=== PATIENT | female | born 1940 | race Caucasian/White ===

== ENCOUNTER 2018-08-28 17:27 | Emergency (ER) | payer MEDICARE, OTHER ==
--- NOTE | 2018-08-28 18:07 | EDM.PDOC ---
ED HPI GENERAL MEDICAL PROBLEM - General Chief Complaint: Neurological Problem Stated Complaint: LOSS OF MEMORY DISORIENTATION Time Seen by Provider: 08/28/18 17:37 Source of Information: Reports: Patient, Family, RN, RN Notes Reviewed History Limitations: Reports: No Limitations - History of Present Illness INITIAL COMMENTS - FREE TEXT/NARRATIVE: Patient is brought to the emergency room at [facility] for the evaluation of acute onset of altered mental status and confusion. The patient's son states that his mother called him around 5 PM this evening and seemed very confused on the phone, therefore she was brought to the emergency room. The patient and son state that the patient seemed to have some memory deficit starting about one month ago after she returned from a trip to [place]. The symptoms have not really been all that pronounced until this past weekend and today. The patient cannot remember the events from earlier today or this weekend. The patient is aware of her surroundings and is able to know the date and year. She is able to recognize objects. The patient is able to remember her address. The patient is aware, however that her memory is not what it should be. The patient denies any strokelike symptoms. The patient does not have any visual field disturbances. The patient has no history of any neurological problems or deficits in the past. The patient has not had any changes in medications. Her last travel was to [place] last month. The patient denies any possible vector bites. The patient states that she feels frustrated because she is aware of her memory deficits. Onset: Gradual - Related Data Allergies Allergy/AdvReac Type Severity Reaction Status Date / Time sertraline HCl [From Zoloft] Allergy Nausea Verified 12/25/15 06:20 Home Meds: Home Meds Aspirin [Halfprin] 1 tab PO DAILY 12/25/15 [History] Escitalopram [Lexapro] 1 tab PO DAILY 12/25/15 [History] Esomeprazole Magnesium [Nexium] 1 cap PO DAILY 12/25/15 [History] Ferrous Sulfate 1 tab PO TID 12/25/15 [History] Levothyroxine Sodium [Synthroid] 1 tab PO DAILY 12/25/15 [History] Past Medical History Cardiovascular History: Reports: None Respiratory History: Reports: None Gastrointestinal History: Reports: GERD Genitourinary History: Reports: None Musculoskeletal History: Reports: Osteoarthritis, Other (See Below) Other Musculoskeletal History: bunion Neurological History: Reports: None Psychiatric History: Reports: Anxiety, Depression Endocrine/Metabolic History: Reports: Hypothyroidism Oncologic (Cancer) History: Reports: None Dermatologic History: Reports: Other (See Below) Other Dermatologic History: seborrheic keratosis - Past Surgical History Cardiovascular Surgical History: Reports: None ED ROS GENERAL - Review of Systems Review Of Systems: See Below Constitutional: Denies: Fever, Chills Respiratory: Denies: Shortness of Breath, Cough Cardiovascular: Denies: Chest Pain, Palpitations GI/Abdominal: Denies: Abdominal Pain, Nausea, Vomiting Skin: Reports: No Symptoms Neurological: Reports: Confusion. Denies: Headache, Pre-Existing Deficit, Syncope, Trouble Speaking, Change in Speech ED EXAM, NEURO - Physical Exam Exam: See Below Exam Limited By: No Limitations General Appearance: Alert, No Apparent Distress Eye Exam: Bilateral Eye: EOMI, Normal Inspection, PERRL Ears: Normal External Exam, Normal Canal, Normal TMs Nose: Normal Inspection Head Exam: Atraumatic, Normocephalic Neck: Normal Inspection, Supple, Non-Tender Respiratory/Chest: No Respiratory Distress, Lungs Clear, Normal Breath Sounds Cardiovascular: Normal Peripheral Pulses, Regular Rate, Rhythm GI/Abdominal: Normal Bowel Sounds, Soft, Non-Tender Neurological: Alert, Other (oriented to place and person, disoriented to time; unable to recall past weekend or todays events) Skin Exam: Warm, Dry, Intact, Normal Color Course - Orders/Labs/Meds Orders: Active Orders 24 hr Category Date Time Status EKG 12 Lead [EKG Documentation Completion] [RC] STAT Care 08/28/18 17:59 Active CULTURE URINE [RM] Stat Lab 08/28/18 18:00 Received Labs: Laboratory Tests 08/28/18 08/28/18 08/28/18 Range/Units 18:00 18:06 18:06 WBC 6.3 (4.0-10.0) x10^3/uL RBC 3.88 L (4.00-5.50) x10^6/uL Hgb 11.3 L (12.0-16.0) g/dL Hct 35.2 (33.0-47.0) % MCV 90.7 (78.0-93.0) fL MCH 29.1 (26.0-32.0) pg MCHC 32.1 (32.0-36.0) g/dL RDW Coeff of Mildred 13.0 (10.0-15.0) % Plt Count 259 (130-400) x10^3/uL Neut % (Auto) 49.9 L (50.0-80.0) % Lymph % (Auto) 37.9 (25.0-50.0) % [place] % (Auto) 7.7 (2.0-11.0) % Eos % (Auto) 3.9 (0.0-4.0) % Baso % (Auto) 0.6 (0.2-1.2) % Sodium 142 (136-145) mmol/L Potassium 3.6 (3.5-5.1) mmol/L Chloride 105 (98-107) mmol/L Carbon Dioxide 27 (21-32) mmol/L Anion Gap 13.6 (10-20) mmol/L BUN 17 (7-18) mg/dL Creatinine 1.0 (0.55-1.02) mg/dL Est Cr Clr Drug Dosing TNP Estimated GFR (MDRD) 53 Glucose 111 H (74-106) mg/dL Calcium 8.8 (8.5-10.1) mg/dL Corrected Calcium 9.36 (8.5-10.1) mg/dL Magnesium 1.9 (1.8-2.4) mg/dL Total Bilirubin 0.4 (0.2-1.0) mg/dL AST 14 L (15-37) U/L ALT 13 L (14-59) U/L Alkaline Phosphatase 93 (46-116) U/L Creatine Kinase 82 (26-192) U/L Troponin I < 0.017 (<=0.056) ng/mL Total Protein 6.7 (6.4-8.2) g/dL Albumin 3.3 L (3.4-5.0) g/dL Globulin 3.4 Albumin/Globulin Ratio 0.97 Urine Color Yellow (YELLOW) Urine Appearance Clear (CLEAR) Urine pH 5.5 (5.0-8.0) Ur Specific [place] 1.010 Urine Protein Negative (NEGATIVE) mg/dL Urine Glucose (UA) Negative (NEGATIVE) mg/dL Urine Ketones Negative (NEGATIVE) mg/dL Urine Occult Blood Trace-lysed H (NEGATIVE) Urine Nitrite Negative (NEGATIVE) Urine Bilirubin Negative (NEGATIVE) Urine Urobilinogen 0.2 (0.2) EU/dL Ur Leukocyte Esterase Small H (NEGATIVE) Urine RBC 0-5 (NOT SEEN) /HPF Urine WBC 0-5 (NOT SEEN) /HPF Ur Squamous Epith Cells Few H (NEGATIVE) /HPF Urine Bacteria Rare (NEGATIVE) /HPF Urine Mucus Few H (NEGATIVE) /LPF Urine Yeast (Budding) Not seen - Radiology Interpretation Free Text/Narrative:: CT Head: No acute findings seen on CT scan of the brain. CT scan report in EMR for details. CT Results Date: 08/28/18 CT Results Time: 18:43 Departure - Departure Time of Disposition: 19:09 Disposition: Home, Self-Care 01 Condition: Good Clinical Impression: Acute confusion - Discharge Information *PRESCRIPTION DRUG MONITORING PROGRAM REVIEWED*: Not Applicable *COPY OF PRESCRIPTION DRUG MONITORING REPORT IN PATIENT RICKY: Not Applicable Instructions: Confusion Referrals: Terra Mac DO [Primary Care Provider] - Forms: ED Department Discharge Additional Instructions: Stay well-hydrated and rest. No changes with any home medications. All lab work and CAT scan were normal. Recommend follow-up with PCP later this week for any additional testing. - Problem List Review Problem List Initiated/Reviewed/Updated: Yes - My Orders Last 24 Hours: My Active Orders 08/28/18 17:59 EKG 12 Lead [EKG Documentation Completion] [RC] STAT 08/28/18 18:00 CULTURE URINE [RM] Stat - Assessment/Plan Last 24 Hours: My Active Orders 08/28/18 17:59 EKG 12 Lead [EKG Documentation Completion] [RC] STAT 08/28/18 18:00 CULTURE URINE [RM] Stat Assessment:: Acute confusion AMS Plan: CT scan and labs were normal. No acute pathology found for acute confusion. Patient is safe to be able to be discharged and be at home. The patient will be discharged in the care of her son. I recommend that the patient follow up with her primary care provider later this week as she would benefit from neuropsychological testing.
[2018-08-28 18:36] LABS: CHLORIDE,CL 105 mmol/L (98-107); SODIUM,NA 142 mmol/L (136-145)
[2018-08-28 18:38] LABS: ANION GAP 13.6 mmol/L (10-20)
--- NOTE | 2018-08-28 18:47 | CT ---
[id number] CT/CT Head WO IV EXAM: NONCONTRAST HEAD CT INDICATION: Acute confusion and altered mental status. COMPARISON: Brain MRI October 17, 2015. DISCUSSION: Stable mild generalized atrophy. Stable mild chronic small vessel ischemic changes and prominent right basal ganglia Virchow-[place] space. No mass effect or midline shift. No acute hemorrhage or extra-axial fluid collection. No acute territorial infarct is identified. There is near complete opacification of the right maxillary sinus likely representing a combination of mucosal thickening and a mucosal retention cyst. There are couple of opacified left ethmoid air cells. Findings are relatively stable on the right, but new on the left. IMPRESSION: 1. No acute intracranial findings. 2. Right maxillary and left ethmoid sinusitis. Enrrique Brewer MD 08/28/18 [id number] Thank you for allowing us to participate in the care of your patient.
[2018-08-28 19:15] VITALS: BP 145/73
== END 2018-08-28 19:15 | disposition home or self-care (01) ==
LOC: VM.ED 17:27
DX: R41.0 Disorientation, unspecified (principal); K21.9 Gastro-esophageal reflux disease without esophagitis; F41.9 Anxiety disorder, unspecified; F32.9 Major depressive disorder, single episode, unspecified; E03.9 Hypothyroidism, unspecified; Z88.8 Allergy status to other drugs, medicaments and biological substances; Z79.82 Long term (current) use of aspirin; Z79.899 Other long term (current) drug therapy
CPT/HCPCS: 36415; 70450; 80053; 81001; 82550; 83735; 84484; 85025; 87086; 93005; 99284-GF; 99285-25

== ENCOUNTER 2018-09-14 23:26 | Emergency (ER) | payer MEDICARE, OTHER ==
[2018-09-14 23:32] VITALS: BP 165/69
--- NOTE | 2018-09-14 23:42 | EDM.PDOC ---
ED HPI GENERAL MEDICAL PROBLEM - General Chief Complaint: Abdominal Pain Stated Complaint: Left upper quadrant pain; SOB Time Seen by Provider: 09/14/18 23:27 Source of Information: Reports: Patient, Family, RN, RN Notes Reviewed History Limitations: Reports: No Limitations - History of Present Illness INITIAL COMMENTS - FREE TEXT/NARRATIVE: Patient presents to the ED at [facility] for the evaluation of LUQ abdominal pain that started around 22:30 this evening. She states she was on her way to bed when the pain started. No previous abdominal problems or surgeries. She states she ate popcorn for supper. No N/V/D. Has mild SOB, especially when the pain is at its worst. No cardiac chest pain. No focal neurological complaints. Denies any back pain. The abdominal pain does not radiate. States the pain is colicky and sharp/stabbing. Onset: Today, Sudden Onset Date: 09/14/18 Onset Time: 22:30 Duration: Colic Location: Reports: Abdomen (LUQ) Quality: Reports: Sharp, Stabbing Severity: Severe Improves with: Reports: None Worsens with: Reports: None Context: Denies: Activity, Sick Contact, Trauma Associated Symptoms: Reports: Shortness of Breath Treatments BIOLOGY LECTURER: Reports: Other (see below) (None) Left Upper Abdomen Pain Score (Numeric/FACES): 8 - Related Data Allergies Allergy/AdvReac Type Severity Reaction Status Date / Time sertraline HCl [From Zoloft] Allergy Nausea Verified 09/14/18 23:34 Home Meds: Home Meds Aspirin [Halfprin] 1 tab PO DAILY 12/25/15 [History] Escitalopram [Lexapro] 1 tab PO DAILY 12/25/15 [History] Esomeprazole Magnesium [Nexium] 1 cap PO DAILY 12/25/15 [History] Ferrous Sulfate 1 tab PO DAILY 12/25/15 [History] Levothyroxine [Synthroid] 88 mcg PO ACBREAKFAST 08/28/18 [History] Past Medical History Cardiovascular History: Reports: None Respiratory History: Reports: None Gastrointestinal History: Reports: GERD Genitourinary History: Reports: None Musculoskeletal History: Reports: Osteoarthritis, Other (See Below) Other Musculoskeletal History: bunion Neurological History: Reports: None Psychiatric History: Reports: Anxiety, Depression Endocrine/Metabolic History: Reports: Hypothyroidism Oncologic (Cancer) History: Reports: None Dermatologic History: Reports: Other (See Below) Other Dermatologic History: seborrheic keratosis - Past Surgical History Cardiovascular Surgical History: Reports: None ED ROS GENERAL - Review of Systems Review Of Systems: See Below Constitutional: Denies: Fever, Chills Respiratory: Reports: Shortness of Breath. Denies: Cough Cardiovascular: Denies: Chest Pain, Palpitations GI/Abdominal: Reports: Abdominal Pain. Denies: Diarrhea, Nausea, Vomiting Skin: Reports: No Symptoms Neurological: Reports: No Symptoms ED EXAM, GI/ABD - Physical Exam Exam: See Below Exam Limited By: No Limitations General Appearance: Alert, No Apparent Distress Respiratory/Chest: No Respiratory Distress, Lungs Clear, Normal Breath Sounds Cardiovascular: Normal Peripheral Pulses, Regular Rate, Rhythm GI/Abdominal Exam: Soft, Tender (LUQ on deep palpation), Abnormal Bowel Sounds ( Hyperactive) Neurological: Alert, Oriented Skin Exam: Warm, Dry, Intact, Normal Color Course - Vital Signs Last Recorded V/S: Last Vital Signs Temp 36.9 C 09/14/18 23:26 Pulse 82 09/14/18 23:26 Resp 14 09/14/18 23:26 BP 165/69 H 09/14/18 23:26 Pulse Ox 98 09/14/18 23:26 - Orders/Labs/Meds Orders: Active Orders 24 hr Category Date Time Status Chest Abdomen Pelvis w Cont [CT] Stat Exams 09/14/18 23:39 Taken CULTURE URINE [RM] Stat Lab 09/15/18 00:07 Received SEDIMENTATION RATE AUTO [HEME] Stat Lab 09/15/18 00:06 Received Sodium Chloride 0.9% [Saline Flush] Med 09/14/18 23:43 Active 10 ml FLUSH ASDIRECTED PRN Peripheral IV Insertion Adult [OM.PC] Routine Oth 09/14/18 23:43 Ordered Medication Orders Sodium Chloride (Saline Flush) 10 ml FLUSH ASDIRECTED PRN PRN Reason: Keep Vein Open Labs: Laboratory Tests 09/14/18 09/14/18 09/14/18 Range/Units 23:54 23:54 23:54 WBC 5.9 (4.0-10.0) x10^3/uL RBC 3.60 L (4.00-5.50) x10^6/uL Hgb 10.5 L (12.0-16.0) g/dL Hct 32.4 L (33.0-47.0) % MCV 90.0 (78.0-93.0) fL MCH 29.2 (26.0-32.0) pg MCHC 32.4 (32.0-36.0) g/dL RDW Coeff of Mildred 13.3 (10.0-15.0) % Plt Count 245 (130-400) x10^3/uL Neut % (Auto) 48.0 L (50.0-80.0) % Lymph % (Auto) 37.8 (25.0-50.0) % [place] % (Auto) 8.2 (2.0-11.0) % Eos % (Auto) 4.3 H (0.0-4.0) % Baso % (Auto) 1.7 H (0.2-1.2) % Sodium 143 (136-145) mmol/L Potassium 3.6 (3.5-5.1) mmol/L Chloride 107 (98-107) mmol/L Carbon Dioxide 26 (21-32) mmol/L Anion Gap 13.6 (10-20) mmol/L BUN 16 (7-18) mg/dL Creatinine 0.9 (0.55-1.02) mg/dL Est Cr Clr Drug Dosing TNP Estimated GFR (MDRD) > 60 Glucose 124 H (74-106) mg/dL Calcium 8.4 L (8.5-10.1) mg/dL Corrected Calcium 9.04 (8.5-10.1) mg/dL Total Bilirubin 0.3 (0.2-1.0) mg/dL AST 16 (15-37) U/L ALT 17 (14-59) U/L Alkaline Phosphatase 85 (46-116) U/L C-Reactive Protein < 0.2 (<=0.9) mg/dL Total Protein 6.3 L (6.4-8.2) g/dL Albumin 3.2 L (3.4-5.0) g/dL Globulin 3.1 Albumin/Globulin Ratio 1.03 Amylase 59 (25-115) U/L Lipase 149 (73-393) U/L Urine Color (YELLOW) Urine Appearance (CLEAR) Urine pH (5.0-8.0) Ur Specific [place] Urine Protein (NEGATIVE) mg/dL Urine Glucose (UA) (NEGATIVE) mg/dL Urine Ketones (NEGATIVE) mg/dL Urine Occult Blood (NEGATIVE) Urine Nitrite (NEGATIVE) Urine Bilirubin (NEGATIVE) Urine Urobilinogen (0.2) EU/dL Ur Leukocyte Esterase (NEGATIVE) Urine RBC (NOT SEEN) /HPF Urine WBC (NOT SEEN) /HPF Ur Squamous Epith Cells (NEGATIVE) /HPF Urine Bacteria (NEGATIVE) /HPF Urine Mucus (NEGATIVE) /LPF 09/15/18 Range/Units 00:07 WBC (4.0-10.0) x10^3/uL RBC (4.00-5.50) x10^6/uL Hgb (12.0-16.0) g/dL Hct (33.0-47.0) % MCV (78.0-93.0) fL MCH (26.0-32.0) pg MCHC (32.0-36.0) g/dL RDW Coeff of Mildred (10.0-15.0) % Plt Count (130-400) x10^3/uL Neut % (Auto) (50.0-80.0) % Lymph % (Auto) (25.0-50.0) % [place] % (Auto) (2.0-11.0) % Eos % (Auto) (0.0-4.0) % Baso % (Auto) (0.2-1.2) % Sodium (136-145) mmol/L Potassium (3.5-5.1) mmol/L Chloride (98-107) mmol/L Carbon Dioxide (21-32) mmol/L Anion Gap (10-20) mmol/L BUN (7-18) mg/dL Creatinine (0.55-1.02) mg/dL Est Cr Clr Drug Dosing Estimated GFR (MDRD) Glucose (74-106) mg/dL Calcium (8.5-10.1) mg/dL Corrected Calcium (8.5-10.1) mg/dL Total Bilirubin (0.2-1.0) mg/dL AST (15-37) U/L ALT (14-59) U/L Alkaline Phosphatase (46-116) U/L C-Reactive Protein (<=0.9) mg/dL Total Protein (6.4-8.2) g/dL Albumin (3.4-5.0) g/dL Globulin Albumin/Globulin Ratio Amylase (25-115) U/L Lipase (73-393) U/L Urine Color Yellow (YELLOW) Urine Appearance Clear (CLEAR) Urine pH 6.0 (5.0-8.0) Ur Specific [place] <=1.005 Urine Protein Negative (NEGATIVE) mg/dL Urine Glucose (UA) Negative (NEGATIVE) mg/dL Urine Ketones Negative (NEGATIVE) mg/dL Urine Occult Blood Trace-lysed H (NEGATIVE) Urine Nitrite Negative (NEGATIVE) Urine Bilirubin Negative (NEGATIVE) Urine Urobilinogen 0.2 (0.2) EU/dL Ur Leukocyte Esterase Small H (NEGATIVE) Urine RBC 0-5 (NOT SEEN) /HPF Urine WBC 0-5 (NOT SEEN) /HPF Ur Squamous Epith Cells Few H (NEGATIVE) /HPF Urine Bacteria Not seen (NEGATIVE) /HPF Urine Mucus Not seen (NEGATIVE) /LPF Meds: Medications Generic Name Dose Route Start Last Admin Trade Name Freq PRN Reason Stop Dose Admin Sodium Chloride 10 ml 09/14/18 23:43 Saline Flush FLUSH ASDIRECTED PRN Keep Vein Open Discontinued Medications Generic Name Dose Route Start Last Admin Trade Name Freq PRN Reason Stop Dose Admin Iopamidol 100 ml 09/14/18 23:57 09/14/18 23:59 Isovue-300 (61%) IVPUSH 09/14/18 23:58 100 ml ONETIME ONE Administration - Radiology Interpretation Free Text/Narrative:: CT Chest/Abd/Pelvis w/contrast: No acute findings See scanned report for details in EMR CT Results Date: 09/15/18 CT Results Time: 00:36 Departure - Departure Time of Disposition: 00:43 Disposition: Home, Self-Care 01 Condition: Good Clinical Impression: LUQ abdominal pain - Discharge Information *PRESCRIPTION DRUG MONITORING PROGRAM REVIEWED*: Not Applicable *COPY OF PRESCRIPTION DRUG MONITORING REPORT IN PATIENT RICKY: Not Applicable Instructions: Abdominal Pain, Adult, [id number] Referrals: Terra Mac DO [Physician] - Forms: ED Department Discharge Additional Instructions: 1. Stay well hydrated and rest 2. See your PCP as symptoms warrant - Problem List Review Problem List Initiated/Reviewed/Updated: Yes - My Orders Last 24 Hours: My Active Orders 09/14/18 23:39 Chest Abdomen Pelvis w Cont [CT] Stat 09/14/18 23:43 Sodium Chloride 0.9% [Saline Flush] 10 ml FLUSH ASDIRECTED PRN Peripheral IV Insertion Adult [OM.PC] Routine 09/15/18 00:06 SEDIMENTATION RATE AUTO [HEME] Stat 09/15/18 00:07 CULTURE URINE [RM] Stat - Assessment/Plan Last 24 Hours: My Active Orders 09/14/18 23:39 Chest Abdomen Pelvis w Cont [CT] Stat 09/14/18 23:43 Sodium Chloride 0.9% [Saline Flush] 10 ml FLUSH ASDIRECTED PRN Peripheral IV Insertion Adult [OM.PC] Routine 09/15/18 00:06 SEDIMENTATION RATE AUTO [HEME] Stat 09/15/18 00:07 CULTURE URINE [RM] Stat Assessment:: LUQ pain of unknown etiology Plan: Labs and CT results discussed with patient. NO acute etiology or emergency found. Recommend a bland diet and staying well hydrated. See PCP as symptoms warrant.
[2018-09-14] MEDS ORDERED: Sodium Chloride 0.9% 10 ML Syringe FLUSH PRN (23:43)
[2018-09-14] MEDS: Iopamidol 612 MG/ML 100 ML Bottle IVPUSH ONE (23:59)
[2018-09-15 00:29] LABS: CHLORIDE,CL 107 mmol/L (98-107); SODIUM,NA 143 mmol/L (136-145)
[2018-09-15 00:30] LABS: ANION GAP 13.6 mmol/L (10-20)
--- NOTE | 2018-09-15 10:00 | CT ---
[id number] CT/CT Chest Abdomen Pelvis W IV Exam: CT Chest Abdomen Pelvis W IV Clinical Data: ABDOMINAL PAIN. COSTOVERTEBRAL ANGLE TENDERNESS SHORTNESS OF BREATH. COMPARISON: NO PREVIOUS SIMILAR EXAM IS AVAILABLE FINDINGS: There is no infiltrate. The great vessels are intact. The pulmonary arteries are prominent. There are no obvious large central pulmonary emboli. There is a large Bochdalek hernia. The liver and spleen, kidneys, adrenals, pelvis, and aorta show no acute abnormalities. The gallbladder is not distended. An occasional tiny renal cyst is seen. The pelvis shows no mass or adenopathy. Involutional changes of the uterus are seen. The appendix is not seen. There is no evidence of appendicitis. IMPRESSION: NO ACUTE PROCESS. Derrick Medel MD 09/15/18 0959 Thank you for allowing us to participate in the care of your patient.
== END 2018-09-15 00:51 | disposition home or self-care (01) ==
LOC: VM.ED 23:26
DX: R10.12 Left upper quadrant pain (principal); Z88.8 Allergy status to other drugs, medicaments and biological substances; Z79.82 Long term (current) use of aspirin; Z79.899 Other long term (current) drug therapy
CPT/HCPCS: 36415; 71260; 74177; 80053; 81001; 82150; 83690; 85025; 85652; 86140; 87086; 99284; Q9967

== ENCOUNTER 2019-08-12 07:12 | Emergency (ER) | payer MEDICARE, OTHER ==
[2019-08-12] MEDS ORDERED: Sodium Chloride 0.9% 10 ML Syringe FLUSH PRN (07:17)
[2019-08-12] MEDS ORDERED: Aspirin 81 MG Tab.Chew PO ONE (07:33)
[2019-08-12 08:09] LABS: CHLORIDE,CL 107 mmol/L (98-107); SODIUM,NA 144 mmol/L (136-145)
[2019-08-12 08:11] LABS: ANION GAP 13.8 mmol/L (10-20)
[2019-08-12 08:24] VITALS: BP 142/74; PULSE 70
--- NOTE | 2019-08-12 08:34 | CR ---
[id number] RAD/RAD Chest PA or AP 1V EXAM: SINGLE VIEW CHEST. INDICATION: CHEST PAIN COMPARISON: CORRELATION IS MADE WITH THE CAT SCAN OF SEPTEMBER 14, 2018 FINDINGS: The lungs are clear There is a large hiatal hernia The cardiac silhouette is also enlarged IMPRESSION: NO PNEUMONIA OR EDEMA Derrick Medel MD 08/12/19 0833 Thank you for allowing us to participate in the care of your patient.
--- NOTE | 2019-08-13 05:24 | EDM.PDOC ---
ED HPI GENERAL MEDICAL PROBLEM - General Chief Complaint: Chest Pain Time Seen by Provider: 08/12/19 07:12 Source of Information: Reports: Patient History Limitations: Reports: No Limitations - History of Present Illness INITIAL COMMENTS - FREE TEXT/NARRATIVE: Pt. presents to ER with complaints of intermittent chest pain that had resolved prior to arrival to ER. She states that there was no radiation into the jaw, arms, neck or back. Son states that he feels that patient has been anxious throughout the night as she got lost leaving her son's house and had to be brought home by police. Denies any shortness of breath. She states that she is not currently taking any of her medications. She lives alone. Pt. denies any cough or chest congestion. No nausea, vomiting, or diaphoresis. Denies any vertigo or palpitations. Pt. states that is is fatigued and states that she did not sleep well last night following the night's events. Onset Date: 08/12/19 Location: Reports: Chest, Generalized Middle Chest Pain Score (Numeric/FACES): 7 - Related Data Allergies Allergy/AdvReac Type Severity Reaction Status Date / Time sertraline HCl [From Zoloft] Allergy Nausea Verified 08/12/19 07:29 Home Meds: Home Meds . [No Known Home Meds] 08/12/19 [History] Past Medical History Cardiovascular History: Reports: None Respiratory History: Reports: None Gastrointestinal History: Reports: GERD Genitourinary History: Reports: None [employer] WORK[employer] History: Reports: Musculoskeletal History: Reports: Osteoarthritis, Other (See Below) Other Musculoskeletal History: bunion Neurological History: Reports: None Psychiatric History: Reports: Anxiety, Depression Endocrine/Metabolic History: Reports: Hypothyroidism Hematologic History: Reports: Anemia, B12 Deficiency Oncologic (Cancer) History: Reports: None Dermatologic History: Reports: Other (See Below) Other Dermatologic History: seborrheic keratosis - Past Surgical History Cardiovascular Surgical History: Reports: None Social & Family History - Tobacco Use Smoking Status *Q: Never Smoker ED ROS GENERAL - Review of Systems Review Of Systems: See Below Constitutional: Reports: No Symptoms HEENT: Reports: No Symptoms Respiratory: Reports: No Symptoms Cardiovascular: Reports: No Symptoms (chest pain had resolved) Endocrine: Reports: No Symptoms GI/Abdominal: Reports: No Symptoms : Reports: No Symptoms Musculoskeletal: Reports: No Symptoms Skin: Reports: No Symptoms Neurological: Reports: No Symptoms Psychiatric: Reports: Anxiety Hematologic/Lymphatic: Reports: No Symptoms Immunologic: Reports: No Symptoms ED EXAM, GENERAL - Physical Exam Exam: See Below Exam Limited By: No Limitations General Appearance: Alert, WD/WN, No Apparent Distress Nose: Normal Inspection, Normal Mucosa, No Blood Throat/Mouth: Normal Inspection, Normal Lips, Normal Teeth, Normal Gums, Normal Oropharynx, Normal Voice, No Airway Compromise Head: Atraumatic, Normocephalic Neck: Normal Inspection, Supple, Non-Tender, Full Range of Motion Respiratory/Chest: No Respiratory Distress, Lungs Clear, Normal Breath Sounds, No Accessory Muscle Use, Chest Non-Tender Cardiovascular: Normal Peripheral Pulses, Regular Rate, Rhythm, No Edema, No Gallop, No JVD, No Murmur, No Rub Peripheral Pulses: 4+: Radial (L) GI/Abdominal: Normal Bowel Sounds, Soft, Non-Tender, No Distention, No Mass (Female) Exam: Deferred Rectal (Female) Exam: Deferred Back Exam: Normal Inspection, Full Range of Motion Extremities: Normal Inspection, Normal Range of Motion, Non-Tender, No Pedal Edema, Normal Capillary Refill Neurological: Alert, CN II-XII Intact, Normal Cognition, Normal Gait, Normal Reflexes, No Motor/Sensory Deficits, Confused (seemed somewhat confused; unable to relate why she wasn't taking her medications or when she stopped.) Psychiatric: Anxious Skin Exam: Warm, Dry, Intact Lymphatic: No Adenopathy EKG INTERPRETATION Rhythm: NSR [place]: Normal P-Wave: Present QRS: Normal ST-T: Normal QT: Normal Course - Vital Signs Last Recorded V/S: Last Vital Signs Temp 36.8 C 08/12/19 07:12 Pulse 70 08/12/19 08:23 Resp 11 L 08/12/19 08:23 BP 142/74 H 08/12/19 08:23 Pulse Ox 95 08/12/19 08:23 - Orders/Labs/Meds Orders: Active Orders 24 hr Category Date Time Status EKG Documentation Completion [RC] STAT Care 08/12/19 07:17 Active Labs: Laboratory Tests 08/12/19 08/12/19 08/12/19 Range/Units 07:31 07:31 07:31 WBC 5.2 (4.0-10.0) x10^3/uL RBC 3.82 L (4.00-5.50) x10^6/uL Hgb 11.2 L (12.0-16.0) g/dL Hct 33.9 (33.0-47.0) % MCV 88.7 (78.0-93.0) fL MCH 29.3 (26.0-32.0) pg MCHC 33.0 (32.0-36.0) g/dL RDW Coeff of Mildred 13.2 (10.0-15.0) % Plt Count 224 (130-400) x10^3/uL Neut % (Auto) 55.8 (50.0-80.0) % Lymph % (Auto) 31.0 (25.0-50.0) % Kings % (Auto) 8.7 (2.0-11.0) % Eos % (Auto) 3.5 (0.0-4.0) % Baso % (Auto) 1.0 (0.2-1.2) % PT 10.3 (10.0-12.8) SEC INR 0.9 L (2.0-3.5) Sodium 144 (136-145) mmol/L Potassium 3.8 (3.5-5.1) mmol/L Chloride 107 (98-107) mmol/L Carbon Dioxide 27 (21-32) mmol/L Anion Gap 13.8 (10-20) mmol/L BUN 18 (7-18) mg/dL Creatinine 1.0 (0.55-1.02) mg/dL Est Cr Clr Drug Dosing TNP Estimated GFR (MDRD) 53 Glucose 98 (74-106) mg/dL Calcium 8.4 L (8.5-10.1) mg/dL Corrected Calcium 8.88 (8.5-10.1) mg/dL Magnesium 1.8 (1.8-2.4) mg/dL Total Bilirubin 0.6 (0.2-1.0) mg/dL AST 14 L (15-37) U/L ALT 12 L (14-59) U/L Alkaline Phosphatase 98 (46-116) U/L Troponin I < 0.017 (<=0.056) ng/mL C-Reactive Protein < 0.2 (<=0.9) mg/dL Total Protein 6.5 (6.4-8.2) g/dL Albumin 3.4 (3.4-5.0) g/dL Globulin 3.1 Albumin/Globulin Ratio 1.10 TSH, Ultra Sensitive 11.705 H (0.358-3.74) uIU/mL Meds: Medications Discontinued Medications Generic Name Dose Route Start Last Admin Trade Name Susan PRN Reason Stop Dose Admin Aspirin 324 mg 08/12/19 07:33 08/12/19 07:14 Aspirin PO 08/12/19 07:34 324 mg ONETIME ONE Administration Sodium Chloride 10 ml 08/12/19 07:17 Saline Flush FLUSH ASDIRECTED PRN Keep Vein Open - Radiology Interpretation Free Text/Narrative:: No acute pathology Departure - Departure Time of Disposition: 08:47 Disposition: Home, Self-Care 01 Clinical Impression: Atypical chest pain - Discharge Information Instructions: Nonspecific Chest Pain, [id number] Referrals: Terra Mac DO [Primary Care Provider] - Forms: ED Department Discharge Additional Instructions: Follow-up with Dr. Mac this week. Your TSH is elevated. You need to have your thyroid hormone levels checked. Return to ER if you have any chest pain, shortness of breath, lightheadedness, or racing heart. Sepsis Event Note - Evaluation Sepsis Screening Result: No Definite Risk - My Orders Last 24 Hours: My Active Orders 08/12/19 07:17 EKG Documentation Completion [RC] STAT - Assessment/Plan Last 24 Hours: My Active Orders 08/12/19 07:17 EKG Documentation Completion [RC] STAT Plan: Follow-up with Dr. Mac this week. Your TSH is elevated. You need to have your thyroid hormone levels checked. Return to ER if you have any chest pain, shortness of breath, lightheadedness, or racing heart.
== END 2019-08-12 08:47 | disposition home or self-care (01) ==
LOC: VM.ED 07:12
DX: R07.89 Other chest pain (principal); Z88.8 Allergy status to other drugs, medicaments and biological substances
CPT/HCPCS: 36415; 71045; 80053; 83735; 84443; 84484; 85025; 85610; 86140; 93005; 99285; A9270; 93010; 99284-GF